=== PATIENT | male | born 2000 | race African-American/Black ===

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

== ENCOUNTER 2019-10-03 16:47 | Emergency (ER) | payer MEDICAID ==
[~2019-10-03] VITALS: Ht 177.8 cm; Wt 136.1 kg
[2019-10-03 17:28] VITALS: BP 130/87
== END 2019-10-03 17:34 | disposition home or self-care (01) ==
LOC: ER 16:47
DX: J06.9 Acute upper respiratory infection, unspecified (principal); J45.909 Unspecified asthma, uncomplicated
CPT/HCPCS: 71045

== ENCOUNTER 2021-06-05 11:39 | Emergency (ER) | payer MEDICAID ==
[~2021-06-05] VITALS: Ht 177.8 cm; Wt 136.1 kg
[~2021-06-05 11:39] MED LIST changes: +METH36TA; -METH36TA13
[2021-06-05 13:14] VITALS: BP 146/65
== END 2021-06-05 13:37 | disposition home or self-care (01) ==
LOC: ER 11:39
DX: J01.90 Acute sinusitis, unspecified (principal); J45.909 Unspecified asthma, uncomplicated; Z20.822 Contact with and (suspected) exposure to COVID-19
CPT/HCPCS: 36415; 87426